=== PATIENT | female | born 1990 | race Caucasian/White ===

== ENCOUNTER 2018-10-22 00:33 | Emergency (ER) | payer SELFPAY ==
[2018-10-22 00:40] VITALS: BP 113/63; PULSE 77; RESP 15; TEMP 36.8; O2SAT 99; BMI 35.2
--- NOTE | 2018-10-22 00:45 | ED_ITS ---
HPI - Abdominal Pain General Chief Complaint: Abdominal Pain Stated Complaint: REALLY BAD LEFT SIDE PAIN - GETTING WORSE Time Seen by Provider: 10/22/18 00:44 Source: patient Mode of arrival: ambulatory Limitations: no limitations History of Present Illness HPI narrative: 28-year-old female here for evaluation of 5 days of left upper quadrant abdominal pain. Has had nausea but no vomiting. Had diarrhea last evening but no other change in bowel habits. No urinary symptoms. No blood in her urine. No vaginal bleeding or discharge. has not had any workup for symptoms prior to arrival. She also states she has had worsening heartburn over the past several days. Related Data Home Medications Medication Instructions Recorded Confirmed ondansetron [Zofran ODT] #0 02/19/17 Previous Rx's Medication Instructions Recorded sucralfate [Carafate] 10 ml PO QID #420 ml 10/22/18 Allergies Allergy/AdvReac Type Severity Reaction Status Date / Time No Known Drug Allergies Allergy Verified 10/22/18 00:46 Review of Systems Constitutional Constitutional: Denies fever(s) Cardiovascular Cardiovascular: Denies chest pain and Denies dyspnea Respiratory Respiratory: Denies dyspnea Gastrointestinal Gastrointestinal: Reports abdominal pain, Reports diarrhea, Reports nausea and Denies vomiting Comments: Heartburn Genitourinary Genitourinary: Denies dysuria and Denies vaginal discharge Musculoskeletal Musculoskeletal: Denies myalgias and Denies arthralgias Integumentary/Breasts Skin/Breast: Denies lesions and Denies rash Neurologic Neurologic: Denies behavioral changes Psychiatric Psychiatric: Denies behavioral changes Hematologic/Lymphatic Hematologic/Lymphatic: Denies easy bleeding and Denies easy bruising [facility] Surgical History H/O: section (Acute) Status post surgery (06/23/11) Status post tubal ligation Social History Smoking Status: Unknown if ever smoked Social History Smoking Status: Unknown if ever smoked Exam Initial Vital Signs Initial Vital Signs: Vital Signs Temperature 98.3 F 10/22/18 00:40 Pulse Rate 77 10/22/18 00:40 Respiratory Rate 15 10/22/18 00:40 Blood Pressure 113/63 10/22/18 00:40 Pulse Oximetry 99 10/22/18 00:40 Const General: cooperative, healthy appearing, well developed, well groomed and No acute distress Orientation: alert, awake and oriented x3 HENMT Head: normal to inspection and normocephalic Resp Effort & Inspection: normal respiratory effort Auscultation: clear to auscultation bilaterally Cardio Rate: regular rate Rhythm: regular rhythm GI Inspection: non-distended Palpation: soft, No firm and No tender Back/Spine/Pelvis Back: No CVA tenderness Skin Lesions: no lesions Rashes: no rashes Neuro General: alert and awake Cognition: normal cognition Speech: speech normal Extrem General: normal to inspection and capillary refill normal Psych Appearance: grossly normal and well kempt Course Orders Ordered: ED Orders 10/22/18 00:39 Urine Culture Stat Urine Microscopic Stat 10/22/18 00:56 Complete Blood Count AUTO DIFF Stat Comprehensive Metabolic Panel Stat Lipase Stat Discontinued Medications Al Hydrox/Mg Hydrox/Simethicone 20 ml/ Lidocaine HCl 15 ml 0 ml PO NOW ONE Stop: 10/22/18 00:50 Last Admin: 10/22/18 01:05 Dose: 35 ml Documented by: MMCFARL Pantoprazole Sodium (Protonix) 40 mg IV NOW ONE Stop: 10/22/18 00:50 Last Admin: 10/22/18 01:05 Dose: 40 mg Documented by: MMCFARL Vital Signs Vital signs: Vital Signs - 8 hr 10/22/18 00:40 10/22/18 01:40 Temperature 98.3 F Pulse Rate 77 69 Respiratory Rate 15 12 Blood Pressure 113/63 110/61 Pulse Oximetry 99 100 MDM - Abdominal Pain Lab Data Attestation: I reviewed the patient's lab results. Result diagrams: 10/22/18 00:56 10/22/18 00:56 Labs: Lab Results 10/22/18 10/22/18 10/22/18 Range/Units 00:39 00:56 00:56 WBC 9.0 (4.5-11.0) X10^3/uL RBC 4.42 (4.0-5.2) X10^6/uL Hgb 13.4 (12.0-16.0) g/dL Hct 39.8 (36-46) % MCV 90.1 (80-100) fL MCH 30.4 (26-34) PG MCHC 33.7 (30-36) % RDW 14.0 (11.6-14.8) % Plt Count 171 (150-400) X10^3/uL Neut % (Auto) 53.6 (50-75) % Lymph % (Auto) 38.8 (25-40) % Powell % (Auto) 6.1 (3-14) % Eos % (Auto) 1.1 L (2-4) % Baso % (Auto) 0.4 (0-2) % Neut # (Auto) 4800 (4781-8046) /uL Lymph # (Auto) 3500 (4670-1140) /uL Powell # (Auto) 500 (0-900) /uL Eos # (Auto) 100 (0-450) /uL Baso # (Auto) 0 (0-100) /uL Sodium 138 (137-145) mmol/L Potassium 3.7 (3.4-5.1) mmol/L Chloride 108 H (98-107) mmol/L Carbon Dioxide 22 (22-32) mmol/L BUN 16 (7-17) mg/dL Creatinine 0.40 L (0.52-1.04) mg/dL Estimated GFR > 60.0 (>60) mL/min BUN/Creatinine Ratio 40.0 H (6-22) Glucose 95 (70-100) mg/dL Calcium 9.0 (8.4-10.2) mg/dL Total Bilirubin 0.3 (0.2-1.3) mg/dL AST 19 (14-36) IU/L ALT 12 (9-52) IU/L Alkaline Phosphatase 46 (38-126) U/L Total Protein 6.7 (6.3-8.2) g/dL Albumin 4.1 (3.5-5.0) g/dL Globulin 2.6 (1.7-4.1) g/dL Albumin/Globulin Ratio 1.6 (1.0-2.8) Lipase 73 (23-300) U/L Urine RBC None seen (0-5/HPF) Urine WBC 0-1/hpf (0-5/HPF) Ur Squamous Epith Cells 1-5 /hpf (0-5/HPF) Urine Bacteria Occasional (0-1) (None) Ur Culture Indicated? Specimen cultured Point of care testing: Point of Care Testing Test Results Negative Urine Dip Bedside Urine Glucose Negative Bedside Urine Bilirubin - Negative Bedside Urine Ketone - Negative Urine Specific [place] 1.010 Bedside Urine Occult Blood - Negative Bedside Urine pH 6.0 Bedside Urine Protein - Negative Bedside Urine Urobilinogen - Negative Bedside Urine Nitrite - Negative Bedside Urine Leukocytes + 70 Esterase MDM Narrative Medical decision making narrative: The patient is benign abdominal exam. Her labs are unremarkable. Not consistent with urinary tract infection or pyelonephritis or kidney stones. She has no skin changes consistent with zoster. She does not have an acute abdomen. Her LFTs and lipase are unremarkable. Low suspicion for gallbladder pathology. She did report improvement of symptoms after the GI medications. Do suspect this could potentially be an ulcer. I discussed this with her. Will send home with a prescription for Carafate. No further workup needed emergently here in the emergency department. Informed her that if her symptoms do not improve she needs to talk with her primary doctor about further evaluation. She was given return precautions. She expressed understanding and agreement with plan. Discharge Plan Departure Patient Disposition: Home Clinical Impression: Abdominal pain Qualifiers: Abdominal location: unspecified location Qualified Code(s): R10.9 - Unspecified abdominal pain Discharge Date/Time: 10/22/18 01:40 Instructions: DI for Abdominal Pain-Adult Activity Restrictions/Additional Instructions: I recommend that you take the Carafate like we discussed. Contact your primary provider for follow-up. I do not feel that an ultrasound is needed emergently however if your symptoms do not improve this can be ordered by your primary provider. Return to the emergency department for any new symptoms Prescriptions: New sucralfate [Carafate] 100 mg/mL suspension 10 ml PO QID Qty: 420 RF: 0 No Action ondansetron [Zofran ODT] 8 MG tablet,disintegrating Qty: 0 RF: 0 Referrals: Won Jimenez MD [Primary Care Provider] -
[2018-10-22 00:59] LABS: RBC Urine None Seen (0-5/HPF)
[2018-10-22] MEDS: MAG HYDROX/ALUMINUM/SIMETH SUS 20 ML, LIDOCAINE VISCOUS 2% 15 ML PO (01:05)
[2018-10-22] MEDS: PANTOPRAZOLE 40 MG VIAL IV (01:05)
[2018-10-22 01:17] LABS: Add Manual Diff / Slide Review NO; Basophils Absolute Auto 0 /uL (0-100); Basophils Percent Auto 0.4 % (0-2); Eosinophils Absolute Auto 100 /uL (0-450); Eosinophils Percent Auto 1.1 % (2-4); Hematocrit 39.8 % (36-46); Hemoglobin 13.4 g/dL (12.0-16.0); Lymphocytes Absolute Auto 3500 /uL (1100-4500); Lymphocytes Percent Auto 38.8 % (25-40); Mean Corpuscular HGB Conc 33.7 % (30-36); Mean Corpuscular Hemoglobin 30.4 PG (26-34); Mean Corpuscular Volume 90.1 fL (80-100); Monocytes Absolute Auto 500 /uL (0-900); Monocytes Percent Auto 6.1 % (3-14); Neutrophils Absolute Auto 4800 /uL (1500-7000); Neutrophils Percent Auto 53.6 % (50-75); Platelet Count 171 X10^3/uL (150-400); Red Blood Cell Count 4.42 X10^6/uL (4.0-5.2)
[2018-10-22 01:19] LABS: Bacteria Urine Occasional (0-1); Culture Indicated Urine Specimen Cultured; Squamous Epithelial Cell Urine 1-5 /HPF (0-5/HPF); WBC Urine 0-1/HPF (0-5/HPF)
[2018-10-22 01:22] LABS: Alanine Aminotransferase 12 IU/L (9-52); Albumin 4.1 g/dL (3.5-5.0); Albumin Globulin Ratio 1.6 (1.0-2.8); Alkaline Phosphatase 46 U/L (38-126); Aspartate Aminotransferase 19 IU/L (14-36); Bilirubin Total 0.3 mg/dL (0.2-1.3); Blood Urea Nitrogen 16 mg/dL (7-17); Carbon Dioxide 22 mmol/L (22-32); Chloride 108 mmol/L (98-107); Estimated Glomerular Filt Rate > 60.0 mL/min (>60); Globulin 2.6 g/dL (1.7-4.1); Glucose 95 mg/dL (70-100); HEMOLYSIS 16 (0-50); Lipase 73 U/L (23-300); Potassium 3.7 mmol/L (3.4-5.1); Sodium 138 mmol/L (137-145); Total Protein 6.7 g/dL (6.3-8.2)
[2018-10-22 01:40] VITALS: BP 110/61; PULSE 69; RESP 12; O2SAT 100
== END 2018-10-22 01:40 | disposition home or self-care (01) ==
PROVIDERS: Emergency Provider Emergency Medicine; Family Provider Family Medicine; PCP Family Medicine
DX: R10.9 Unspecified abdominal pain (principal)
CPT/HCPCS: 36591; 80053; 81003; 81015; 81025; 83690; 85025; 87086; 96374; 99282; 99284; C9113

== ENCOUNTER 2019-03-10 06:25 | Day surgery (SDC) | payer OTHER, MEDICAID, SELFPAY ==
[2019-03-01 13:46] VITALS: BMI 33.8
[2019-03-10] VITALS (12 sets, daily range): BP systolic 86–115; BP diastolic 36–76; PULSE 50–74; RESP 12–20; TEMP 36.4–36.7; O2SAT 94–100; BMI 33.5
--- NOTE | 2019-03-10 | PATH_ITS ---
[facility] Accession Number: [id number] . 01 Material submitted: . uterus - UTERUS AND BILATERAL FALLOPIAN TUBES . 02 Diagnosis: Uterus and Bilateral Fallopian Tubes, Hysterectomy and Bilateral Salpingectomy (Weight 66 grams): Interval phase endometrium; negative for glandular hyperplasia, cytologic atypia or malignancy. Myometrium with no significant histomorphologic abnormality. Uterine serosa with no significant histomorphologic abnormality. Fallopian tubes x2 with rare benign paratubal cysts (1-2 mm in greatest dimension) and no significant histomorphologic abnormality. [facility] 03/14/2019 1114 Local . 02 Electronically signed: . Brittani Potter MD, Pathologist NPI- [id number] . 01 Gross description: . Received in formalin, labeled uterus and bilateral fallopian tubes, is an upper uterine body (66 grams, 4.7 cm AP, 5.7 cm SI, 6.0 cm ML) and two detached fimbriated fallopian tubes (tube #1: length-6.1 cm, diameter-0.3 cm; tube #2: length-3.8 cm, diameter-0.3 cm). The cervix and ovaries are absent. The specimen cannot be oriented as to anterior and posterior. The endometrium (average thickness-0.1 cm) is rangel, smooth and flat. The myometrium (thickness-1.8 cm) is rangel-white with a focally lacy pattern. The serosa is pale rangel, smooth and shiny. The fallopian tubes have malone-rangel smooth shiny serosa and rangel unremarkable lumens. Section code: (A1, A2) endomyometrium; (A3, A4) endomyometrium, opposite side; (A5) fallopian tube #1, patient intake representative serial sections; (A6) fimbria #1, bivalved, entirely submitted; (A7) fallopian tube #2, patient intake representative serial sections; (A8) fimbria #2, bivalved, entirely submitted. ([id number]) /MRV 03/11/2019 0943 Local . 02 Pathologist provided ICD-10: N85.00 . 02 CPT . 091264 Performed at: 01 [facility] [address] [place] [address], [place], [place] [id number] MD Johann Maldonado MD Phone: [phone] Performed at: 02 [facility] [address] [place], [place] [id number] MD Rochelle Delgado MD Phone: [phone]
[2019-03-10] MEDS: CELECOXIB 200 MG CAPSULE 400 MG PO (07:25)
[2019-03-10] MEDS: LACTATED RINGERS 1,000 ML 42 ML IV (07:25)
[2019-03-10] MEDS: SCOPOLAMINE 1 PATCH TOP (07:25)
[2019-03-10] MEDS: ACETAMINOPHEN 325 MG TABLET 975 MG PO (07:25)
[2019-03-10] MEDS: GABAPENTIN 300 MG CAPSULE PO (07:25)
--- NOTE | 2019-03-10 07:34 | PM.PREOP ---
Pre-operative Note Interval Note History & Physical reviewed/Exam performed by Physician: Yes Changes to H&P: No
[2019-03-10] MEDS: MIDAZOLAM 2 MG/2 ML VIAL IV (07:41)
--- NOTE | 2019-03-10 07:41 | SUR.PREOP ---
PT TAKEN DIRECTLY INTO THE OR AFTER IV MIDAZOLAM GIVEN PER ORDERS. PT ALERT AND TALKING TO PERIOPERATIVE MANAGER LEAVING PRE OP AREA.
[2019-03-10] MEDS: CEFAZOLIN 2 GM/100 ML FROZ.PIGGY IV (07:44)
[2019-03-10] MEDS: BUPIVACAINE 0.5% W/ EPI (PF) 10 ML VIAL 20 ML INJ (08:33)
[2019-03-10] MEDS: ROPIVACAINE 2% PF 2 MG/ML 20ML AMP 20 ML INJ (08:34)
[2019-03-10] MEDS: fentaNYL 100 MCG/2 ML INJ IV (09:33)
--- NOTE | 2019-03-10 09:36 | P.OP_ITS ---
Operative Date/Time/Diagnoses Date of procedure: 03/10/19 Time of procedure: 09:37 Pre-op diagnosis: Dysmenorrhea, pelvic pain, menorrhagia, probable adenomyosis Post-op diagnosis: same Procedure & Clinicians Procedure: Laparoscopic supracervical hysterectomy with bilateral salpingectomy Same procedure as scheduled: Yes Indications: Patient is status post multiple sections and tubal ligation with pelvic pain, dysmenorrhea, menorrhagia with ultrasound suggestive of adenomyosis for supracervical hysterectomy with removal of the tubal segments. Surgeon: Jailene Ochoa Velvet Weaver: Michael Crawford Click Yes if Unassisted: No Anesthesia Type: General Operative Notes Findings: Status post bilateral tubal ligation with normal appearing ovaries bilaterally. Adhesions of the bladder to the anterior uterus. No other scar tissue or endometriosis. No internal hernias. Normal appearing liver and gallbladder dome. Normal bowel surface. Closure Type: primary Specimen(s): other (Uterus above the level of the bladder and fallopian tubes) Estimated Blood Loss (mL): 25 Blood products transfused: none Procedure in detail: Patient is brought to the operating room where she underwent general anesthesia and [facility] She was prepped and draped in the usual sterile fashion. A check list was reviewed with the staff in the room prior to beginning of the case. Patient had pulsatile stockings in place and functional. 2 g of Ancef were in prior to beginning of the case.. A Cerna catheter was placed. A single-tooth tenaculum was placed on the anterior lip of the cervix and the cervix dilated to a #6 Hegar dilator. The uterine manipulator was placed through the cervix into the uterus with the balloon inflated with 3 mL of air. The area of the umbilical incision and the 5 mm right and left lower quadrant incisions were injected with Marcaine. An incision was made with scalpel. The verries needle was placed into the abdomen and confirmed in the appropriate place with withdrawal on a s yringe and then free flow of fluid down through the needle. The abdomen was insufflated with CO2. The needle was removed and a 5 mm trocar placed without difficulty. There did not appear to be any damage is placement of the trocar. The right and left lower quadrant incisions were made with the scalpel and the trochars placed without damage to internal structures. The PK forceps were used to cauterize the mesosalpinx followed by the round ligaments on both sides. The distal fallopian tube segments were removed and brought up through the trocar. Sequential bites were taken down the broad ligaments. The uterine arteries were cauterized. An incision was made above the level bladder pushing the bladder away from the cervix. The SHANNON loop was placed around the uterus and the uterus was amputated above the level of the bladder. Bleeding was controlled with the PK forceps. The PK forceps were used to cauterize in the endocervical canal. A supracervical incision was made and an 11 mm port placed. A 15 mm Endo Catch bag was placed in the abdomen. The uterus, tubes and ovaries were placed in the bag and brought up through the suprapubic port site. The Hector O was placed. The uterus was hand morselized. The abdomen was reinsufflated and adequate hemostasis was noted. 20 cc of bupivicaine was placed over the cervical stump. The trochars were removed and the CO2 allowed escape from the abdomen. The fascia layer of the suprapubic site was repaired with 0 Polysorb suture. Skin was closed with 4-0 Monocryl suture at the suprapubic site and the other 3 sites. The patient went to recovery room in good condition. Counts of instruments and sponges were correct. Complications: none Post-operative Condition: stable Disposition: Acute Care (Patient will be discharged when tolerating regular diet and ambulatory) Plan for aftercare: Routine post laparoscopic supracervical hysterectomy
[2019-03-10] MEDS: OXYCODONE IR 5 MG TABLET PO (10:03)
[2019-03-10] MEDS: LACTATED RINGERS 1,000 ML 100 ML IV (10:46)
--- NOTE | 2019-03-10 11:00 | PC.NURSE ---
Addendum entered by Lynn Zuniga R.N. 03/10/19 13:53: went over dc meds and instructions with patient, questions answered. Patient taken les w[place] to vehicle driven by family, patient had all belongings. Addendum entered by Lynn Zuniga R.N. 03/10/19 13:16: Patient ate lunch with no nausea, rates pain to abdomen 5/10 gave two percocet, ambulated to bathroom voided 550cc. Original Note: Patient alert, oriented rates pain to abdomen 5/10. Medicated at 1000 with 5mg oxycodone in PACU. BT+ denies nausea. Patient oriented to room and call light.
[2019-03-10] MEDS: OXYCODONE/ACETAMINOPHEN 5/325 TABLET 2 TAB PO (13:09)
== END 2019-03-10 13:54 | disposition home or self-care (01) ==
LOC: OR 06:26 → AC 06:27
PROVIDERS: Family Provider Family Medicine; PCP Family Medicine; Visit Provider Specialist
PROC: 0UT94ZL Resection of Uterus, Supracervical, Percutaneous Endoscopic Approach (ICD-10-PCS; CPT 58542; principal; 2019-03-10 07:45)
DX: N85.00 Endometrial hyperplasia, unspecified (principal); N83.8 Other noninflammatory disorders of ovary, fallopian tube and broad ligament; N73.6 Female pelvic peritoneal adhesions (postinfective)
CPT/HCPCS: 58542; J0330; J0690; J1100; J2250; J2405; J2704; J2795; J3010

== ENCOUNTER 2021-04-19 20:35 | Emergency (ER) | payer OTHER, MEDICAID, SELFPAY ==
[2019-03-10 10:50] VITALS: BMI 33.5
[2021-04-19] VITALS (8 sets, daily range): BP systolic 116–166; BP diastolic 64–124; PULSE 108–128; RESP 17; TEMP 37.1; O2SAT 96–100; BMI 31.8
[2021-04-19 21:09] LABS: Appearance Urine UA CLEAR; Bilirubin Urine UA NEGATIVE (NEGATIVE); Color Urine UA YELLOW; Glucose Urine UA NEGATIVE (Negative); Ketones Urine UA NEGATIVE (NEGATIVE); Leukocyte Esterase Urine UA 2+ (NEGATIVE); Nitrite Urine UA NEGATIVE (Negative); Occult Blood Urine UA 1+ (Negative); Protein Urine UA 1+ (Negative); Specific Gravity Urine UA <=1.005 (1.000-1.035); Urobilinogen Urine UA 0.2 E.U./dL (0.2)
[2021-04-19 21:10] LABS: pH Urine UA 6.5 (4.5-8.0)
[2021-04-19 21:16] LABS: Bacteria Urine Few (2-10); Culture Indicated Urine Specimen Cultured; RBC Urine 0-1/HPF (0-5/HPF); Renal Epithelial Cells Urine 0-1/HPF (0-1/HPF); Squamous Epithelial Cell Urine 1-5 /HPF (0-5/HPF); Transitional Epi Cells Urine 5-10/HPF (0-5/HPF); WBC Urine 10-30/HPF (0-5/HPF)
[2021-04-19 21:19] LABS: Add Manual Diff / Slide Review NO; Basophils Absolute Auto 0 /uL (0-100); Basophils Percent Auto 0.1 % (0-2); Eosinophils Absolute Auto 0 /uL (0-450); Eosinophils Percent Auto 0.2 % (2-4); Hematocrit 38.2 % (36-46); Lymphocytes Absolute Auto 600 /uL (1100-4500); Lymphocytes Percent Auto 3.4 % (25-40); Mean Corpuscular Hemoglobin 30.9 PG (26-34); Mean Corpuscular Volume 91.1 fL (80-100); Monocytes Absolute Auto 800 /uL (0-900); Monocytes Percent Auto 4.8 % (3-14); Neutrophils Absolute Auto 16000 /uL (1500-7000); Neutrophils Percent Auto 91.5 % (50-75); Platelet Count 209 X10^3/uL (150-400); Red Blood Cell Count 4.19 X10^6/uL (4.0-5.2); Red Cell Distribution Width 13.6 % (11.6-14.8); White Blood Cell Count 17.5 X10^3/uL (4.5-11.0)
[2021-04-19] MEDS: cefTRIAXone 2,000 MG in SODIUM CHLORIDE 0.9% 100 ML 200 ML IV (21:21)
[2021-04-19] MEDS: LACTATED RINGERS 1,572 ML 524 ML IV (21:21)
[2021-04-19] MEDS: KETOROLAC 30 MG/ML VIAL 15 MG IV (21:22)
[2021-04-19 21:23] LABS: COVID19 -Nasal RAPID Negative (Negative)
[2021-04-19 21:30] LABS: Lactate (Lactic Acid) 1.1 mmol/L (0.7-2.1)
[2021-04-19 21:31] LABS: Alanine Aminotransferase 84 IU/L (<35); Albumin 4.1 g/dL (3.5-5.0); Albumin Globulin Ratio 1.2 (1.0-2.8); Alkaline Phosphatase 108 U/L (38-126); Aspartate Aminotransferase 63 IU/L (14-36); BUN Creatinine Ratio 8.8 (6-22); Bilirubin Total 0.8 mg/dL (0.2-1.3); Blood Urea Nitrogen 6 mg/dL (7-17); Calcium 8.9 mg/dL (8.4-10.2); Carbon Dioxide 30 mmol/L (22-32); Chloride 100 mmol/L (98-107); Creatine Kinase 26 U/L (30-135); Estimated Glomerular Filt Rate > 60.0 mL/min (>60); Globulin 3.4 g/dL (1.7-4.1); Glucose 161 mg/dL (70-100); HEMOLYSIS < 15 (0-50); Potassium 2.9 mmol/L (3.4-5.1); Sodium 134 mmol/L (137-145); Total Protein 7.5 g/dL (6.3-8.2)
[2021-04-19 21:43] LABS: Troponin I < 0.012 ng/mL (0.01-0.034)
[2021-04-19 21:48] LABS: Procalcitonin 1.13 ng/mL (<0.5)
--- NOTE | 2021-04-19 21:57 | ED_ITS ---
HPI - Fever General Chief Complaint: Fever Stated Complaint: MIGRAINE FEVER BACK ACHE HARD TO STAND Time Seen by Provider: 04/19/21 20:39 Source: patient Mode of arrival: Ambulatory History of Present Illness HPI Narrative: 30F former smoker with history of ADHD and migraines presents with a chief complaint of about a week of symptoms including dysuria, frequency and urgency as well as low back pain fever and chills and now headache. She has been a bit nauseated but denies vomiting. She has a poor appetite. She denies any chest pain or shortness of breath. She has no abdominal pain, vaginal bleeding or discharge. She denies runny nose, sore throat or cough. She states her back pain is made worse by motion and improves with rest. It is not midline on the bones but in her bilateral lower flank. As stated she has a poor appetite but is able to keep food down. Her headache is somewhat similar to prior migraines. It developed over the course of the week and seems to be made worse with bright lights and loud noise. She has no neck pain and denies trauma Related Data Previous Rx's Medication Instructions Recorded dextroamphetamine-amphetamine ER 30 mg PO DAILY #30 cap 04/11/21 30 mg 24hr capsule,extend release (Adderall XR) cefpodoxime 200 mg tablet 200 mg PO BID 10 Days #20 tab 04/19/21 ketorolac 10 mg tablet 10 mg PO Q6H PRN #14 tab 04/19/21 ondansetron 4 mg disintegrating 4 mg PO TID-QID PRN #10 tab 04/19/21 tablet Allergies Allergy/AdvReac Type Severity Reaction Status Date / Time doxycycline AdvReac Intermediate Nausea Verified 04/19/21 20:52 Review of Systems Review of Systems Narrative: GENERAL: See HPI HEENT: Denies sinus pain, ear pain, sore throat, difficulty swallowing, dizziness. RESPIRATORY: Denies dyspnea, cough, wheezing, hemoptysis, sputum. CARDIOVASCULAR: Denies chest pain, palpitations, orthopnea, edema, GASTROINTESTINAL: See HPI : See HPI MUSCULOSKELETAL: See HPI SKIN: Denies rash, skin lesions, or other NEUROLOGIC: See HPI. PSYCHIATRIC: No concerning psychosocial issues. 12 point review of systems is negative except for those stated above Patient History Medical History Irregular bleeding Surgical History H/O: section Status post surgery (06/23/11) Social History household members: children Smoking Status: Former smoker alcohol intake: current Smoking Status: Former smoker alcohol intake frequency: a few times a week Substance Use Type: marijuana Exam Narrative Exam Narrative: GENERAL: [30 year old patient appears stated age. Well-developed patient, in mild distress. Obviously uncomfortable, rubbing her forehead HEAD: Atraumatic. Normocephalic. EYES: Pupils equal round and reactive. Extraocular motions intact. No scleral icterus. No injection or drainage. ENT: Nose without bleeding, purulent drainage. Throat without erythema, tonsillar hypertrophy or exudate. Airway patent. NECK: Trachea midline. Non tender, full range of motion, no meningeal signs, negative Brudzinski's and Kernig's CARDIOVASCULAR: Regular rate and rhythm without murmurs, gallops, or rubs. RESPIRATORY: Clear to auscultation. Breath sounds equal bilaterally. No wheezes, rales, or rhonchi. GASTROINTESTINAL: Abdomen soft, non-tender, nondistended. EXTREMITIES: No edema or joint tenderness. BACK: Mild bilateral flank tenderness, no midline or bony tenderness NEURO: AOx3. SKIN: No rash or erythema of visible areas Initial Vital Signs Initial Vital Signs: Vital Signs Temperature 98.7 F 04/19/21 20:48 Pulse Rate 128 H 04/19/21 20:48 Respiratory Rate 17 04/19/21 20:48 Blood Pressure 166/124 H 04/19/21 20:48 Pulse Oximetry 100 04/19/21 20:48 Course Orders Ordered: ED Orders 04/19/21 21:02 Urinalysis and Microscopic Stat Urine Culture Stat 04/19/21 21:05 Complete Blood Count AUTO DIFF Stat Comprehensive Metabolic Panel Stat Lactate (Lactic Acid) Stat Procalcitonin Stat Troponin & CK Cardiac Panel Stat 04/19/21 21:11 Blood Culture Stat Discontinued Medications Hydrocodone Bitart/Acetaminophen (Hydrocodone/Acet 5/325 Prepack) 1 bottle MISC SEEINSTR ONE Stop: 04/19/21 23:38 Last Admin: 04/19/21 23:41 Dose: 1 bottle Documented by: MAXWELL Lactated Ringer's (Lactated Ringers) 1,572 mls @ 524 mls/hr 30 ml/kg infuse over 3 hr (1572 ml) IV NOW ONE Stop: 04/19/21 23:52 Last Infusion: 04/19/21 23:37 Dose: 0 mls/hr Documented by: Admin: 04/19/21 21:21 Dose: 524 mls/hr Documented by: MAXWELL Ceftriaxone Sodium 2,000 mg/ (Sodium Chloride) 100 mls @ 200 mls/hr IV NOW ONE Stop: 04/19/21 21:03 Last Infusion: 04/19/21 21:53 Dose: 0 mls/hr Documented by: Admin: 04/19/21 21:21 Dose: 200 mls/hr Documented by: MAXWELL Ketorolac Tromethamine (Ketorolac 30 Mg/Ml Vial) 15 mg IV NOW ONE Stop: 04/19/21 21:04 Last Admin: 04/19/21 21:22 Dose: 15 mg Documented by: MAXWELL Potassium Chloride (Potassium Chloride 20 Meq/15 Ml Udc) 40 meq PO NOW ONE Stop: 04/19/21 22:37 Last Admin: 04/19/21 22:40 Dose: 40 meq Documented by: MAXWELL Vital Signs Vital signs: Vital Signs - 8 hr 04/19/21 22:00 04/19/21 22:01 04/19/21 22:30 Pulse Rate 108 H 110 H 109 H Blood Pressure 116/64 119/72 Pulse Oximetry 99 96 99 04/19/21 23:00 04/19/21 23:30 Pulse Rate 117 H 120 H Blood Pressure 121/68 121/71 Pulse Oximetry 100 99 MDM - Fever Lab Data Result diagrams: 04/19/21 21:05 04/19/21 21:05 Labs: Lab Results 04/19/21 04/19/21 04/19/21 Range/Units 20:53 21:02 21:05 WBC 17.5 H (4.5-11.0) X10^3/uL RBC 4.19 (4.0-5.2) X10^6/uL Hgb 13.0 (12.0-16.0) g/dL Hct 38.2 (36-46) % MCV 91.1 (80-100) fL MCH 30.9 (26-34) PG MCHC 34.0 (30-36) % RDW 13.6 (11.6-14.8) % Plt Count 209 (150-400) X10^3/uL Neut % (Auto) 91.5 H (50-75) % Lymph % (Auto) 3.4 L (25-40) % Banks % (Auto) 4.8 (3-14) % Eos % (Auto) 0.2 L (2-4) % Baso % (Auto) 0.1 (0-2) % Neut # (Auto) 76887 H (7373-5380) /uL Lymph # (Auto) 600 L (3268-8995) /uL Banks # (Auto) 800 (0-900) /uL Eos # (Auto) 0 (0-450) /uL Baso # (Auto) 0 (0-100) /uL Sodium (137-145) mmol/L Potassium (3.4-5.1) mmol/L Chloride (98-107) mmol/L Carbon Dioxide (22-32) mmol/L BUN (7-17) mg/dL Creatinine (0.52-1.04) mg/dL Estimated GFR (>60) mL/min BUN/Creatinine Ratio (6-22) Glucose (70-100) mg/dL Lactate (0.7-2.1) mmol/L Calcium (8.4-10.2) mg/dL Total Bilirubin (0.2-1.3) mg/dL AST (14-36) IU/L ALT (<35) IU/L Alkaline Phosphatase (38-126) U/L Total Creatine Kinase (30-135) U/L CK-MB (CK-2) CK-MB (CK-2) Rel Index Troponin I (0.01-0.034) ng/mL Total Protein (6.3-8.2) g/dL Albumin (3.5-5.0) g/dL Globulin (1.7-4.1) g/dL Albumin/Globulin Ratio (1.0-2.8) Procalcitonin (<0.5) ng/mL Urine Color Yellow Urine Appearance Clear Urine pH 6.5 (4.5-8.0) Ur Specific [place] <=1.005 (1.000-1.035) Urine Protein 1+ H (Negative) Urine Glucose (UA) Negative (Negative) g/dL Urine Ketones Negative (NEGATIVE) Urine Occult Blood 1+ H (Negative) Urine Nitrate Negative (Negative) Urine Bilirubin Negative (NEGATIVE) Urine Urobilinogen 0.2 (0.2) E.U./dL Ur Leukocyte Esterase 2+ H (NEGATIVE) Urine RBC 0-1/hpf (0-5/HPF) Urine WBC 10-30/hpf H (0-5/HPF) Ur Squamous Epith Cells 1-5 /hpf (0-5/HPF) Ur Transition Epith Cell 5-10/hpf H (0-5/HPF) Ur Renal Epithelial Cell 0-1/hpf (0-1/HPF) Urine Bacteria Few (2-10) H (None) Ur Culture Indicated? Specimen cultured SARS-CoV-2 (PCR) Negative (Negative) 04/19/21 04/19/21 Range/Units 21:05 21:05 WBC (4.5-11.0) X10^3/uL RBC (4.0-5.2) X10^6/uL Hgb (12.0-16.0) g/dL Hct (36-46) % MCV (80-100) fL MCH (26-34) PG MCHC (30-36) % RDW (11.6-14.8) % Plt Count (150-400) X10^3/uL Neut % (Auto) (50-75) % Lymph % (Auto) (25-40) % Banks % (Auto) (3-14) % Eos % (Auto) (2-4) % Baso % (Auto) (0-2) % Neut # (Auto) (1568-9260) /uL Lymph # (Auto) (5140-6405) /uL Banks # (Auto) (0-900) /uL Eos # (Auto) (0-450) /uL Baso # (Auto) (0-100) /uL Sodium 134 L (137-145) mmol/L Potassium 2.9 L (3.4-5.1) mmol/L Chloride 100 (98-107) mmol/L Carbon Dioxide 30 (22-32) mmol/L BUN 6 L (7-17) mg/dL Creatinine 0.68 (0.52-1.04) mg/dL Estimated GFR > 60.0 (>60) mL/min BUN/Creatinine Ratio 8.8 (6-22) Glucose 161 H (70-100) mg/dL Lactate 1.1 (0.7-2.1) mmol/L Calcium 8.9 (8.4-10.2) mg/dL Total Bilirubin 0.8 (0.2-1.3) mg/dL AST 63 H (14-36) IU/L ALT 84 H (<35) IU/L Alkaline Phosphatase 108 (38-126) U/L Total Creatine Kinase 26 L (30-135) U/L CK-MB (CK-2) TNP CK-MB (CK-2) Rel Index TNP Troponin I < 0.012 (0.01-0.034) ng/mL Total Protein 7.5 (6.3-8.2) g/dL Albumin 4.1 (3.5-5.0) g/dL Globulin 3.4 (1.7-4.1) g/dL Albumin/Globulin Ratio 1.2 (1.0-2.8) Procalcitonin 1.13 H (<0.5) ng/mL Urine Color Urine Appearance Urine pH (4.5-8.0) Ur Specific [place] (1.000-1.035) Urine Protein (Negative) Urine Glucose (UA) (Negative) g/dL Urine Ketones (NEGATIVE) Urine Occult Blood (Negative) Urine Nitrate (Negative) Urine Bilirubin (NEGATIVE) Urine Urobilinogen (0.2) E.U./dL Ur Leukocyte Esterase (NEGATIVE) Urine RBC (0-5/HPF) Urine WBC (0-5/HPF) Ur Squamous Epith Cells (0-5/HPF) Ur Transition Epith Cell (0-5/HPF) Ur Renal Epithelial Cell (0-1/HPF) Urine Bacteria (None) Ur Culture Indicated? SARS-CoV-2 (PCR) (Negative) Point of Care Testing Test Results Negative Urine Dip Bedside Urine Glucose Negative Bedside Urine Bilirubin - Negative Bedside Urine Ketone - Negative Urine Specific [place] 1.01 Bedside Urine Occult Blood + Bedside Urine pH 6.0 Bedside Urine Protein + 30 Bedside Urine Urobilinogen - Negative Bedside Urine Nitrite - Negative Bedside Urine Leukocytes ++ 125 Esterase MDM Narrative Medical decision making narrative: Multiple etiologies for patient's symptoms considered including: [COVID versus urinary tract infection versus pneumonia versus other Patient's symptoms improved over duration of stay with above-stated therapies. Findings and discharge diagnosis discussed with patient/family followed by verbalization of understanding. She is adamant that her heart rate is always significantly elevated and in the 110s Return precautions discussed with patient/family whom verbalize understanding. Discharge Plan Departure Patient Disposition: Home Clinical Impression: Pyelonephritis Instructions: DI for Kidney Infection Activity Restrictions/Additional Instructions: *You have been diagnosed with [pyelonephritis] *What to do: *Please continue to take your regular medications as directed. [x ] New medication prescriptions sent to your pharmacy: [[facility] ] [ ] New medication written as a paper prescription [ ] No new medications given *Please follow up with your primary care provider in 2-3 days, call for an appointment. Let them know you were seen in the Emergency Department and that we ask that you be seen in follow up. We will electronically transmit a record of today's note if your PCP is in our system *If you do not have a primary care provider please contact the [facility] Resource line at [phone]. They will ask some questions about your medical history and help get you set up with a doctor in the community. *Return to Emergency Department if you should have any new, worsening or concerning symptoms, such as [fever greater than 101 F, shaking chills, wor sening pain, persistent vomiting or other bothersome symptoms] Prescriptions: New cefpodoxime 200 mg tablet 200 mg PO BID 10 Days Qty: 20 0RF Rx Instructions: must administer with a meal/food ketorolac 10 mg tablet 10 mg PO Q6H PRN (Reason: pain) Qty: 14 0RF ondansetron 4 mg tablet,disintegrating 4 mg PO TID-QID PRN (Reason: nausea and vomiting) Qty: 10 0RF No Action dextroamphetamine-amphetamine [Adderall XR] 30 mg capsule,extended release 24hr 30 mg PO DAILY Qty: 30 0RF Referrals: Oneil Mock DO [Primary Care Provider] -
[2021-04-19] MEDS: POTASSIUM CHLORIDE 20 MEQ/15 ML UDC 40 MEQ PO (22:40)
[2021-04-19] MEDS: HYDROCODONE/ACET 5/325 PREPACK 1 BOTTLE MISC (23:41)
== END 2021-04-19 23:45 | disposition home or self-care (01) ==
PROVIDERS: Emergency Provider Emergency Medicine; Family Provider Family Medicine; PCP Family Medicine
DX: N12 Tubulo-interstitial nephritis, not specified as acute or chronic (principal); Z87.891 Personal history of nicotine dependence; Z88.1 Allergy status to other antibiotic agents; Z20.822 Contact with and (suspected) exposure to COVID-19
CPT/HCPCS: 36415; 80053; 81001; 81003; 81025; 82550; 83605; 84145; 84484; 85025; 87040; 87077; 87086; 87186; 87635; 96361; 96365; 96375; 99284; C9803; J0696; J1885

== ENCOUNTER 2021-08-23 23:04 | Emergency (ER) | payer OTHER, MEDICAID, SELFPAY ==
[2019-03-10 10:50] VITALS: BMI 33.5
[2021-08-23 23:19] VITALS: BP 137/84; PULSE 105; RESP 18; TEMP 35.5; O2SAT 100; BMI 31.8
== END 2021-08-24 00:16 | disposition left against medical advice (07) ==
PROVIDERS: Emergency Provider Emergency Medicine; Family Provider Family Medicine; PCP Family Medicine
DX: R10.9 Unspecified abdominal pain (principal)
CPT/HCPCS: 81003; 99281

== ENCOUNTER → 2021-10-02 12:29 | Outpatient (CLI) | payer OTHER, MEDICAID, SELFPAY ==
[2019-03-10 10:50] VITALS: BMI 33.5
[2021-10-02 13:41] LABS: UR Morphine/Opiate cutoff 300 Negative (Negative); Ur Creatinine Normal (Normal); Ur Specific Gravity Normal (Normal); Urine Amphetamines Positive (Negative); Urine Barbiturates Negative (Negative); Urine Benzodiazepines Negative (Negative); Urine Cocaine Negative (Negative); Urine MDMA Negative (Negative); Urine Methadone Negative (Negative); Urine Methamphetamines Negative (Negative); Urine Oxycodone Negative (Negative); Urine Phencyclidine Negative (Negative); Urine Tetrahydrocannabinol Negative (Negative); Urine Tricyclic Antidepressant Negative (Negative); Urine pH Normal (Normal)
== END ==
PROVIDERS: Family Medicine; Family Provider Family Medicine; PCP Family Medicine; Referring Provider Obstetrics & Gynecology; Visit Provider Obstetrics & Gynecology
DX: F90.9 Attention-deficit hyperactivity disorder, unspecified type (principal)
CPT/HCPCS: 80305

== ENCOUNTER → 2022-07-14 16:15 | Outpatient (CLI) | payer OTHER, MEDICAID, SELFPAY ==
[2019-03-10 10:50] VITALS: BMI 33.5
--- NOTE | 2022-07-14 16:18 | DI.RAD.S_ITS ---
PROCEDURE: XR RIBS RT MIN 3V W CXR 1V INDICATIONS: Rib pain TECHNIQUE: 2 views of the right ribs were acquired, along with a single view chest. COMPARISON: None. FINDINGS: Surgical changes and devices: None. Bones and chest wall: No acute displaced rib fracture. No suspicious bony lesions. Overlying soft tissues appear unremarkable. Lungs and pleura: No pleural effusions or pneumothorax. Lungs appear clear. Mediastinum: Mediastinal contours appear normal. Heart size is normal. IMPRESSION: No acute displaced rib fracture. No pleural effusion or pneumothorax. Approved by: Pantera Weiner M.D. on 07/14/2022 at 20:42
[2022-07-14 18:40] LABS: Add Manual Diff / Slide Review NO; Basophils Absolute Auto 0 /uL (0-100); Basophils Percent Auto 0.6 % (0-2); Eosinophils Absolute Auto 0 /uL (0-450); Eosinophils Percent Auto 0.7 % (2-4); Hematocrit 44.2 % (36-46); Hemoglobin 15.1 g/dL (12.0-16.0); Lymphocytes Absolute Auto 2000 /uL (1100-4500); Lymphocytes Percent Auto 31.1 % (25-40); Mean Corpuscular HGB Conc 34.3 % (30-36); Mean Corpuscular Hemoglobin 32.5 PG (26-34); Monocytes Absolute Auto 400 /uL (0-900); Monocytes Percent Auto 6.9 % (3-14); Neutrophils Absolute Auto 3900 /uL (1500-7000); Neutrophils Percent Auto 60.7 % (50-75); Platelet Count 244 X10^3/uL (150-400); Red Blood Cell Count 4.65 X10^6/uL (4.0-5.2); White Blood Cell Count 6.4 X10^3/uL (4.5-11.0)
[2022-07-14 20:17] LABS: Alanine Aminotransferase 106 IU/L (<35); Albumin Globulin Ratio 1.7 (1.0-2.8); Alkaline Phosphatase 77 U/L (38-126); Aspartate Aminotransferase 84 IU/L (14-36); BUN Creatinine Ratio 15.5 (6-22); Bilirubin Total 0.6 mg/dL (0.2-1.3); Blood Urea Nitrogen 9 mg/dL (7-17); Calcium 9.5 mg/dL (8.4-10.2); Carbon Dioxide 20 mmol/L (22-32); Chloride 105 mmol/L (98-107); Cholesterol 197 mg/dL (140-199); Estimated Glomerular Filt Rate > 60 mL/min (>60); Globulin 2.9 g/dL (1.7-4.1); Glucose 87 mg/dL (70-100); HDL Cholesterol 61 mg/dL (40-60); HEMOLYSIS < 15 (0-50); LDL Cholesterol Calculated 93 mg/dL (<100); Potassium 4.1 mmol/L (3.4-5.1); Sodium 138 mmol/L (137-145); Total Protein 7.9 g/dL (6.3-8.2); Triglycerides 213 mg/dL (35-150)
[2022-07-14 20:44] LABS: TSH w/ Reflex to FT4 2.56 uIU/mL (0.47-4.68)
== END ==
PROVIDERS: Family Provider Family Medicine; PCP Family Medicine; Referring Provider Family Medicine; Visit Provider Family Medicine
DX: Z00.00 Encounter for general adult medical examination without abnormal findings (principal); R07.81 Pleurodynia
CPT/HCPCS: 36415; 71101; 80053; 80061; 84443; 85025